=== PATIENT | female | born 1990 | race African-American/Black ===

== ENCOUNTER 2020-06-16 23:13 | Emergency (ER) | payer OTHER ==
[~2020-06-16] VITALS: Ht 165.1 cm; Wt 68.0 kg
[~2020-06-16 23:13] MED LIST: APAP500 PO; COLACE 100 MG100 MG PO; DERMOPLAST SPRA56 ML; IBUPROFEN 600600 M1 PO; IBUPROFEN 800800 M1 PO; IRON325 PO; KEFLEX500 MG PO; PRENATAL; PRENATAL PO; TUCKS MEDICATE1 EAC1
[2020-06-16 23:32] VITALS: BP 121/77
[2020-06-16] MEDS ORDERED: ALEVE220 M1 (23:34)
== END 2020-06-17 00:11 | disposition home or self-care (01) ==
LOC: ER 23:13
DX: H92.01 Otalgia, right ear (principal); Z79.899 Other long term (current) drug therapy